=== PATIENT | female | born 1955 | race Caucasian/White ===

== ENCOUNTER → 2017-04-05 | Outpatient (CLI) | payer BC ==
[2015-04-28 09:39] VITALS: BP 147/79
[~2017-04-05] MED LIST: ALPR2TAB2 PO; ATOR10TA60 PO; CETI10TA16 PO; CIPR500T94 PO; CYCL5POW MC; FLUO10CA13 PO; FLUO40CA9 PO; FLUT10.6 IH; FLUT1DIS3 IH; Ipratropium/Albuterol Sulfate NEB; LORA10TA68 PO; LORA5TAB7 PO; METR60CR TP; OMEP40CA5 PO; PRED5TAB PO; PROM5POW MC; PROP20TA PO; PROP5POW MC; Promethazine Hcl/Codeine PO; QUIN10TA7 PO; QUIN1TAB4 PO; RANI150T2 PO; [UNRECOGNIZED DRUG - CODE] MC
--- NOTE | 2017-04-05 15:06 | RAD ---
Left shoulder, 3 views, 04/05/2017: History: Neck and shoulder pain No fracture or dislocation is identified. There is mild subacromial spurring. The periarticular soft tissues are unremarkable. IMPRESSION: No acute left shoulder abnormality is detected. Cervical spine, 3 views, 04/05/2017: History: Pain The bony structures appear demineralized. There is mild disc space narrowing at C4-5 and C6-7 with anterior and posterior marginal spurring. There is also mild spurring at C5-6. No fracture or dislocation is identified. No prevertebral soft tissue swelling is seen. IMPRESSION: 1. Mild multilevel degenerative change. 2. No acute bony abnormality is detected.
== END | disposition home or self-care (01) ==
LOC: RAD 13:13
PROVIDERS: ATTEND Psychiatry & Neurology Neurology
DX: M47.892 Other spondylosis, cervical region (principal); M25.512 Pain in left shoulder
CPT/HCPCS: 72040; 73030

== ENCOUNTER → 2017-04-29 | Outpatient (CLI) | payer BC ==
[2015-04-28 09:39] VITALS: BP 147/79
--- NOTE | 2017-04-29 15:25 | RAD ---
DATE: 04/29/2017 EXAM: MAMMO RITA SCREENING BILATERAL Bilateral digital screening mammography to include digital breast tomosynthesis (3D mammography) HISTORY: Screening study. COMPARISON: 04/26/2016. This study was interpreted with the benefit of Computerized Aided Detection (CAD). FINDINGS: Digital MLO and CC mammograms of both breasts were obtained. Additionally digital breast tomosynthesis (3D mammography) images of both breasts in the MLO and CC projections were performed. Comparison study is dated 04/26/2016 The breast parenchyma is composed of scattered fibroglandular densities which can obscure a lesion on mammography (breast density code B). No spiculated mass is seen. No malignant appearing calcification or area of architectural distortion is noted. Benign-appearing calcifications are seen scattered throughout both breasts. Digital breast tomosynthesis images demonstrate no spiculated mass or malignant appearing calcification. Since the previous examination there has been no significant interval change. IMPRESSION: First category 1, negative. There is no mammographic evidence of malignancy. Routine yearly screening mammography is recommended for follow-up. BI-RADS CATEGORY: 1 NEGATIVE RECOMMENDED FOLLOW-UP: 12M 12 MONTH FOLLOW-UP PQRS compliance statement: Patient information was entered into a reminder system with a target due date 04/29/2018 for the next mammogram. Mammography is a sensitive method for finding small breast cancers, but it does not detect them all and is not a substitute for careful clinical examination. A negative mammogram does not negate a clinically suspicious finding and should not result in delay in biopsying a clinically suspicious abnormality. "Our facility is accredited by the [employer] Mammography Program."
== END | disposition home or self-care (01) ==
LOC: MAMMO 04-05 13:02
PROVIDERS: ATTEND Family Medicine
DX: Z12.31 Encounter for screening mammogram for malignant neoplasm of breast (principal)
CPT/HCPCS: 77063; G0202; 77067

== ENCOUNTER → 2017-05-31 | Outpatient (CLI) | payer BC ==
[2015-04-28 09:39] VITALS: BP 147/79
[~2017-05-31] MED LIST changes: +QUIN10TA15 PO; -QUIN10TA7 PO; +QUIN1TAB13 PO; -QUIN1TAB4 PO
--- NOTE | 2017-05-31 12:31 | RAD ---
EXAM: 1. Thoracic spine 3 views. 2. Lumbar spine 3 views. HISTORY: Thoracic and lumbar back pain. COMPARISON: None. FINDINGS: There is minimal wedging of 2 midthoracic vertebral bodies. Alignment is maintained. Osteopenia is moderate. Degenerative disc disease is mild in the mid thoracic spine. Degenerative disc disease is mild to moderate at C4-5 and C6-7. No fractures are appreciated within the lumbar spine. There is mild diffuse lumbar degenerative disc disease. Alignment is maintained. Cholecystectomy clips are noted. Atherosclerotic calcifications are noted. IMPRESSION: 1. Two minimal compression deformities within the mid thoracic spine are age indeterminate but likely chronic. Correlate for focal tenderness. 2. Mild thoracic and lumbar degenerative disc disease as above.
== END | disposition home or self-care (01) ==
LOC: DXRAD 12:09
PROVIDERS: ATTEND Psychiatry & Neurology Neurology
DX: M51.34 Other intervertebral disc degeneration, thoracic region (principal); M85.88 Other specified disorders of bone density and structure, other site; M50.321 Other cervical disc degeneration at C4-C5 level; M50.323 Other cervical disc degeneration at C6-C7 level; M51.36 Other intervertebral disc degeneration, lumbar region; I70.0 Atherosclerosis of aorta; Z90.49 Acquired absence of other specified parts of digestive tract
CPT/HCPCS: 72072; 72100

== ENCOUNTER → 2019-10-14 | Outpatient (CLI) | payer MEDICARE ==
[2015-04-28 09:39] VITALS: BP 147/79
[~2019-10-14] MED LIST changes: +OMEP40CA45 PO; -OMEP40CA5 PO
--- NOTE | 2019-10-15 11:16 | RAD ---
DATE: October 14, 2019 EXAM: MAMMO RITA SCREENING BILATERAL HISTORY: Screening study. COMPARISON: 2017 This study was interpreted with the benefit of Computerized Aided Detection (CAD). 2-D digital mammographic views of both breasts were performed in the CC and MLO projections. 3-D digital tomosynthesis images of both breasts were performed in the CC and MLO projections and reviewed on a computer workstation. FINDINGS: Breast Density: HETERO The breast parenchyma is heterogenously dense, which could reduce sensitivity of mammography. Breast parenchyma level C.. There are no suspicious microcalcifications or evidence of architectural distortion. On the right side, there are 2 enlarging nodules adjacent to one another located just medial and inferior to the nipple line seen on MLO rita image 42 and CC rita image 22. The more anterior lateral nodule measures 8 mm and the more posterior medial nodule measures 6 mm. There are additional nodules seen on the right side which have not changed significantly. On CC rita image 25, there is a new 6 mm nodule seen medially and posteriorly on the left side. This measures 6 mm. This is not readily seen in the MLO projection. There are additional nodules seen on the left side which have not changed significantly. Recommend bilateral breast sonography. IMPRESSION: Bilateral breast nodules. Recommend bilateral breast sonography. BI-RADS CATEGORY: 0 INCOMPLETE: NEEDS ADDITIONAL IMAGING EVALUATION AND/OR PRIOR MAMMOGRAMS FOR COMPARISON. RECOMMENDED FOLLOW-UP: ADD ADDITIONAL IMAGING PQRS compliance statement: Patient information was entered into a reminder system with a target due date now for the next imaging study. Mammography is a sensitive method for finding small breast cancers, but it does not detect them all and is not a substitute for careful clinical examination. A negative mammogram does not negate a clinically suspicious finding and should not result in delay in biopsying a clinically suspicious abnormality. "Our facility is accredited by the [employer] Mammography Program." The patient's breast density may affect the ability of mammography to detect breast cancer. There are 4 categories of breast density, A, B, C and D. Breast density A means that most of the breast tissue is replaced with adipose tissue and therefore is not dense. Breast density B means that the breast tissue is mildly dense and scattered. Breast density C means that the breast tissue is heterogeneously dense. Breast density D means that the breast tissue is very dense. Breast densities especially C and D may decrease the sensitivity of mammography to detect breast cancer. Therefore, the patient may benefit from 3-D breast mammography (3D breast tomography) as a part of their screening mammogram. Insurance may or may not pay for this additional imaging. The patient's breast density based on today's mammogram is category C.
== END | disposition home or self-care (01) ==
LOC: MAMMO 13:08
PROVIDERS: ATTEND Family Medicine
DX: Z12.31 Encounter for screening mammogram for malignant neoplasm of breast (principal); N63.20 Unspecified lump in the left breast, unspecified quadrant; N63.10 Unspecified lump in the right breast, unspecified quadrant
CPT/HCPCS: 77063; 77067

== ENCOUNTER → 2019-10-21 | Outpatient (CLI) | payer MEDICARE ==
[2015-04-28 09:39] VITALS: BP 147/79
--- NOTE | 2019-10-22 16:46 | RAD ---
Examination: BREAST BILATERAL History: Abnormal mammogram Comparison/Correlation: 04/29/2017 and 10/14/2019 mammographic exams Findings: Bilateral Limited breast ultrasound reveals performed. Right breast At the 5:00 region 3 cm from the nipple, there is a 0.6 cm x 0.5 cm x 0.4 cm hypoechoic structure which is present and has internal echoes. Reticulated margins noted. At the 5:00 region 4 cm from nipple, there is a smaller more smoothly marginated structure which is hypoechoic measuring 0.34 cm x 0.29 cm x 0.26 cm tall. No flow is identified in either of these structures. Left breast At the left breast 9:00 region, there is a well-circumscribed hypoechoic structure measuring 0.34 cm x 0.6 cm x 0.2 cm tall. No flow evident within it. Impression: BI-RADS Category 4-suspicious for malignancy. Biopsy by ultrasound guidance of the 0.6 mm diameter hypoechoic structure involving the right breast 5:00 region is recommended. 6 month follow-up for the left breast finding is recommended by ultrasound. A voicemail message was left for the nurse of Dr. Dillard's office on 10/22/2019 at 4:38 PM. Electronically signed by: Ronnie Huggins MD (10/22/2019 4:43 PM) LINDA
== END | disposition home or self-care (01) ==
LOC: US 12:41
PROVIDERS: ATTEND Family Medicine
DX: R92.8 Other abnormal and inconclusive findings on diagnostic imaging of breast (principal)
CPT/HCPCS: 76641

== ENCOUNTER → 2020-03-30 | Outpatient (CLI) | payer MEDICARE ==
[2015-04-28 09:39] VITALS: BP 147/79
--- NOTE | 2020-03-31 09:15 | RAD ---
EXAM: CHEST PA LATERAL INDICATION: Reason: SOA / Spl. Instructions: / History: . TECHNIQUE: PA and lateral views COMPARISON: None FINDINGS: The heart size is borderline enlarged. The great vessels appear unremarkable. There is no hilar or mediastinal mass. The lungs are clear. There is no pleural effusion or pneumothorax. There are no significant osseous abnormalities. IMPRESSION: Borderline cardiomegaly with no superimposed active cardiopulmonary disease. Electronically signed by: Jennifer Pinto MD (03/31/2020 9:12 AM) [id number]
== END ==
LOC: RAD 12:36
PROVIDERS: ATTEND Internal Medicine Pulmonary Disease
DX: R06.02 Shortness of breath (principal)
CPT/HCPCS: 71046

== ENCOUNTER → 2021-08-23 | Outpatient (CLI) | payer MEDICARE ==
[2015-04-28 09:39] VITALS: BP 147/79
[~2021-08-23] MED LIST changes: -OMEP40CA45 PO; +OMEP40CA7 PO; -QUIN1TAB13 PO; +QUIN1TAB25 PO
--- NOTE | 2021-08-23 10:56 | RAD ---
EXAM: DUAL ENERGY X-RAY ABSORPTIOMETRY (DEXA). HISTORY: Postmenopausal screening. FINDINGS: The lowest measured T-score is -2.9 in the lumbar spine, based on a bone mineral density of 0.830 g/cm^2. Refer to the worksheets for full detail. No comparison examinations are available. IMPRESSION: 1. Osteoporosis. Bone mineral density yields a T-score of -2.5 or less. Fracture risk is high. 2. FRAX report: Not calculated. METHODOLOGY: Dual energy x-ray absorptiometry was performed to measure bone mineral density. The foll owing analysis is based on the 2019 Official Positions of the International Society for Clinical Dens itometry: Measurements of the hips and the average of L1-L4 are preferred. When the spine and/or hip cannot be feasibly measured or interpreted, or in the setting of hyperparathyroidism, distal radial bone minera l density may be measured. The lumbar spine T-score is based on the average bone mineral density of L1-L4. In the setting of art ifact or anatomic abnormality, some lumbar levels may be excluded, and the remaining levels used for calculation. A single lumbar level is not used for diagnosis, and if only a single level is available for assessment, another anatomic site will be used to assign a diagnosis. The hip T-score is based on the bone mineral density measurement of the femoral neck or total proxima l femur of either side, whichever is lowest. Bilateral mean values are not used for diagnosis. The forearm T-score is derived from 33% of the distal radius of the nondominant forearm. Electronically signed by: Fannie Segundo MD (08/23/2021 10:53 AM) [id number]
--- NOTE | 2021-08-23 16:02 | RAD ---
Bilateral digital screening mammogram to include digital breast tomosynthesis (3-D mammography) 08/23 CLINICAL HISTORY: Screening study. Digital MLO and CC mammograms of both breasts were obtained. Additionally digital breast tomosynthesi s images (3-D mammography) of both breasts in the CC and MLO projections were obtained. Comparison study is dated 10/14/2019. The breast parenchyma is heterogeneously dense which could obscure a lesion on mammography (breast de nsity C). Benign-appearing calcifications are seen within both breasts. No spiculated mass is seen. N o malignant appearing calcification or area of architectural distortion is noted. Digital breast tomosynthesis images demonstrate no spiculated mass. No malignant appearing calcificat ion is seen. Impression: BI-RADS Category 1: Negative. There is no mammographic evidence of malignancy. Routine y early screening mammography is recommended for follow-up. This examination was reviewed with the aid of computer-aided detection. A mammogram does not have 100% sensitivity and therefore a negative imaging study should not delay fu rther work up of a suspicious abnormality. Patient information is entered into the reminder system with a target due date for the next screening mammogram of 08/23/2022. "Our facility is accredited by the [employer] Mammography Program." Electronically signed by: Jimenez Cárdenas MD (08/23/2021 4:00 PM) [id number]
== END ==
LOC: MAMMO 10:20
PROVIDERS: ATTEND Physician Assistant
DX: Z12.31 Encounter for screening mammogram for malignant neoplasm of breast (principal); M81.0 Age-related osteoporosis without current pathological fracture
CPT/HCPCS: 77063; 77067; 77080